=== PATIENT | male | born 1990 | race Caucasian/White ===

== ENCOUNTER 2022-08-11 09:03 | Observation (INO) | payer SELFPAY ==
[2022-08-10 10:56] VITALS: BMI 31.6
[2022-08-11] MEDS ORDERED: Midazolam HCl 2 mg/2 ml Vial ONE (10:38)
[2022-08-11] MEDS ORDERED: EPINEPHrine 1 MG/ML AMP ONE (12:25)
[2022-08-11] MEDS ORDERED: Lidocaine 1% (PF) 30 ML VIAL ONE (12:25)
[2022-08-11] MEDS ORDERED: fentaNYL PF 100 MCG/2 ML SYRINGE ONE (12:30)
[2022-08-11] MEDS ORDERED: Dexamethasone 20 MG/5 ML VIAL ONE (12:45)
[2022-08-11] MEDS ORDERED: NEOSTIGMINE 3 MG/3 ML SYR 3 MG/3 ML SYRINGE ONE (12:45)
[2022-08-11] MEDS ORDERED: Glycopyrrolate 0.2 MG/ML 5 ML SYRINGE ONE (12:45)
[2022-08-11] MEDS ORDERED: Lidocaine 1% PF 5 ML VIAL ONE (12:45)
[2022-08-11] MEDS ORDERED: PROPOFOL 200 MG/20 ML VIAL ONE (12:45)
[2022-08-11] MEDS ORDERED: Ondansetron PF 4 MG/2 ML Vial ONE (12:45)
[2022-08-11] MEDS ORDERED: Rocuronium Bromide 10 MG/ML (10ML VIAL) ONE (12:45)
[2022-08-11] MEDS ORDERED: Ondansetron HCl/PF 4 MG/2 ML Vial IVP PRN (15:16)
[2022-08-11] MEDS ORDERED: HYDROmorphone 2 MG/ML VIAL SLOW IVP PRN (15:16)
[2022-08-11] MEDS ORDERED: Promethazine HCl 25 MG/ML VIAL IM PRN (15:16)
[2022-08-11] MEDS ORDERED: Ondansetron PF 4 MG/2 ML Vial IVP PRN (15:23)
[2022-08-11] MEDS ORDERED: Morphine 2 MG/ML VIAL SLOW IVP PRN (15:23)
[2022-08-11] MEDS ORDERED: HYDROcodone/Acetaminophen 7.5/325 mg Tablet PO PRN (15:25)
[2022-08-11] MEDS ORDERED: FENTANYL 50 MCG/ML 1 ML VIAL ONE (15:37)
[2022-08-11] MEDS: D5 1/2 NS w/20 mEq KCL 1,000 ML IV SCH (16:32)
[2022-08-12] MEDS ORDERED: Ibuprofen 200 MG TAB PO PRN (00:34)
[2022-08-12] MEDS ORDERED: Ibuprofen 800 MG TAB PO PRN (00:35)
[2022-08-12] MEDS: D5 1/2 NS w/20 mEq KCL 1,000 ML IV SCH ×2 (02:36→11:18)
[2022-08-12 08:08] VITALS: BP 126/73; TEMP 97.9
[2022-08-12] MEDS ORDERED: FLU VACC QS2022-23(6MO UP)/PF 60 MCG/0.5 ML SYRINGE IM ONE (09:00)
== END 2022-08-12 11:14 | disposition home or self-care (01) ==
LOC: SDC 09:03 → SJJU 15:16
PROVIDERS: ADMIT Specialist; ATTEND Specialist
PROC: 0GTJ0ZZ Resection of Thyroid Gland Isthmus, Open Approach (ICD-10-PCS; principal; 2022-08-11)
PROC: 0GTH0ZZ Resection of Right Thyroid Gland Lobe, Open Approach (ICD-10-PCS; 2022-08-11)
PROC: 0GTG0ZZ Resection of Left Thyroid Gland Lobe, Open Approach (ICD-10-PCS; 2022-08-11)
DX: C73 Malignant neoplasm of thyroid gland (principal); Z87.891 Personal history of nicotine dependence
CPT/HCPCS: 36415; 82310; 83970; 88307; C1776; C1889; G0378; J0171; J1100; J2001; J2250; J2405; J2704; J3010